=== PATIENT | female | born 1960 | race American Indian/Alaskan Native ===

== ENCOUNTER 2016-12-13 15:33 | Emergency (ER) | payer BC ==
[2016-12-13] MEDS ORDERED: NORVASC ONE (16:56)
[2016-12-13] MEDS ORDERED: NORVASC PO ONE (16:58)
[2016-12-13 17:29] LABS: Basophils % (Auto) 0.6 % (0.0-1.8); Eosinophils % (Auto) 1.1 % (0.0-4.3); Hematocrit 40.2 % (30.3-42.9); Hemoglobin 13.2 gm/dl (10.1-14.3); Mean Corpuscular HGB Conc 33 % (30-34); Mean Corpuscular Hemoglobin 28 pg (28-32); Mean Corpuscular Volume 86 fl (79-97); Platelet Count 261 K/mm3 (140-440); Red Blood Count 4.66 M/mm3 (3.65-5.03); Red Cell Distribution Width 13.1 % (13.2-15.2); White Blood Count 7.6 K/mm3 (4.5-11.0)
[2016-12-13 17:44] LABS: BUN/Creatinine Ratio 13.75; Blood Urea Nitrogen 11 mg/dL (7-17); Calcium 9.4 mg/dL (8.4-10.2); Carbon Dioxide 29 mmol/L (22-30); Chloride 100.9 mmol/L (98-107); Glucose 99 mg/dL (65-100); Sodium 140 mmol/L (137-145)
[2016-12-13 17:48] LABS: Anion Gap 14 mmol/L
[2016-12-13] MEDS ORDERED: CATAPRES PO ONE (20:17)
[2016-12-13 22:24] VITALS: BP 156/106
[2016-12-14] MEDS ORDERED: AUGMENTIN 875 MG PO ONE (02:42)
--- NOTE | 2016-12-14 02:58 | Emergency Department Report ---
ED Neck Pain/Injury HPI - General Chief Complaint: Neck Pain/Injury Stated Complaint: SWOLLEN NECK/FACE Time Seen by Provider: 12/14/16 02:29 Mode of arrival: Ambulatory Limitations: No Limitations - History of Present Illness Initial Comments: 56-year-old female with past medical history hypertension presents to the hospital complains of right neck gland swelling for several days. Patient was seen at [facility] early for same symptoms. States she was treated for uncontrolled hypertension and diagnosed with lymphadenopathy secondary to infection. No labs or meds were prescribed. Patient felt that her treatment and diagnosis were inadequate so came to the ER for reevaluation. Patient complains of postnasal drip and some mild swelling to right side of her face. She denies fever, cough, ear pain, or sore throat. - Related Data Home Medications Medication Instructions Recorded Confirmed Last Taken amLODIPine [Norvasc] 5 mg PO DAILY 05/10/16 05/10/16 05/10/16 Previous Rx's Medication Instructions Recorded Last Taken Type Meclizine [Antivert] 25 mg PO TID PRN #30 tablet 11/05/14 Unknown Rx Cyclobenzaprine [Flexeril] 10 mg PO TID PRN #20 tablet 05/10/16 Unknown Rx Amoxicillin/K Clav Tab [Augmentin 1 tab PO Q12HR #14 tab 12/14/16 Unknown Rx 875 mg] Allergies Allergy/AdvReac Type Severity Reaction Status Date / Time promethazine HCl Allergy Swelling Verified 12/13/16 16:44 [From Phenergan] ED Review of Systems ROS: Stated complaint: SWOLLEN NECK/FACE Other details as noted in HPI Comment: All other systems reviewed and negative Other: Constitutional: No fevers chills Eyes: No eye pain visual changes or discharge ENT: as per hpi, nasal congestion, sinus drainage Neck: Denies pain Respiratory: Denies cough wheezing shortness of breath Cardiovascular: Denies chest pain, palpitations, syncope GI: Denies abdominal pain, nausea, vomiting, diarrhea : Denies dysuria, urinary frequency, or urgency Musculoskeletal: Denies back pain, joint swelling Skin: Denies rash, lesions, erythema Neurologic: Denies headache, numbness, weakness Psychiatric: Denies suicidal ideation, hallucinations ED Past Medical Hx - Past Medical History Hx Hypertension: Yes Hx Headaches / Migraines: Yes Additional medical history: vertigo. lyme disease - Surgical History Hx Cholecystectomy: Yes Additional Surgical History: tubal ligation. colon biopsy. ablation of uterus - Social History Smoking Status: Never Smoker Substance Use Type: None - Medications Home Medications: Home Medications Medication Instructions Recorded Confirmed Last Taken Type Meclizine [Antivert] 25 mg PO TID PRN #30 tablet 11/05/14 Unknown Rx Cyclobenzaprine [Flexeril] 10 mg PO TID PRN #20 tablet 05/10/16 Unknown Rx amLODIPine [Norvasc] 5 mg PO DAILY 05/10/16 05/10/16 05/10/16 History Amoxicillin/K Clav Tab [Augmentin 1 tab PO Q12HR #14 tab 12/14/16 Unknown Rx 875 mg] ED Physical Exam - General Limitations: No Limitations - Other Other exam information: General: No limitations, patient is alert in no acute distress Head exam: Atraumatic, normocephalic Eyes exam: Normal appearance, pupils equal reactive to light, extraocular movements intact ENT: Moist mucous membrane, lymphadenopathy below the ear, nontender, tm normal b/l Neck exam: Normal inspection, full range of motion, no meningismus nontender Respiratory exam: Clear to auscultation bilateral, no wheezes, rales, crackles Cardiovascular: Normal rate and rhythm, normal heart sounds Abdomen: Soft, nondistended, and nontender, with normal bowel sounds, no rebound, or guarding Extremity: Full range of motion normal inspection no deformity Back: Normal Inspection, full range of motion, no tenderness Neurologic: Alert, oriented x3, cranial nerves intact, no motor or sensory deficit Psychiatric: normal affect, normal mood Skin: Warm, dry, intact ED Course Vital Signs 12/13/16 12/13/16 12/13/16 16:45 18:19 20:05 Temperature 98.4 F 97.9 F Pulse Rate 83 80 80 Respiratory 18 18 16 Rate Blood Pressure 198/122 202/126 Blood Pressure 222/138 [Left] O2 Sat by Pulse 98 99 Oximetry 12/13/16 22:23 Temperature Pulse Rate 82 Respiratory 16 Rate Blood Pressure Blood Pressure 156/106 [Left] O2 Sat by Pulse 100 Oximetry - Reevaluation(s) Reevaluation #1: 12/14/16 03:22 pt bp improved with meds prior to my eval. Pt stable ED Medical Decision Making - Lab Data Result diagrams: 12/13/16 17:11 12/13/16 17:11 Lab Results 12/13/16 12/13/16 Range/Units 17:11 17:11 WBC 7.6 (4.5-11.0) K/mm3 RBC 4.66 (3.65-5.03) M/mm3 Hgb 13.2 (10.1-14.3) gm/dl Hct 40.2 (30.3-42.9) % MCV 86 (79-97) fl MCH 28 (28-32) pg MCHC 33 (30-34) % RDW 13.1 L (13.2-15.2) % Plt Count 261 (140-440) K/mm3 Lymph % (Auto) 37.5 H (13.4-35.0) % [place] % (Auto) 7.4 H (0.0-7.3) % Eos % (Auto) 1.1 (0.0-4.3) % Baso % (Auto) 0.6 (0.0-1.8) % Lymph # 2.9 (1.2-5.4) K/mm3 [place] # 0.6 (0.0-0.8) K/mm3 Eos # 0.1 (0.0-0.4) K/mm3 Baso # 0.0 (0.0-0.1) K/mm3 Seg Neutrophils % 53.4 (40.0-70.0) % Seg Neutrophils # 4.1 (1.8-7.7) K/mm3 Sodium 140 (137-145) mmol/L Potassium 4.0 (3.6-5.0) mmol/L Chloride 100.9 (98-107) mmol/L Carbon Dioxide 29 (22-30) mmol/L Anion Gap 14 mmol/L BUN 11 (7-17) mg/dL Creatinine 0.8 (0.7-1.2) mg/dL Estimated GFR > 60 ml/min BUN/Creatinine Ratio 13.75 % Glucose 99 (65-100) mg/dL Calcium 9.4 (8.4-10.2) mg/dL - Medical Decision Making Patient has some lymphadenopathy which could be secondary to infection. She will be treated with Augmentin given her concern and follow-up will be recommended - Differential Diagnosis lymphadenopathy, parotic gland swelling, sinusitis, viral Critical Care Time: No Critical care attestation.: If time is entered above; I have spent that time in minutes in the direct care of this critically ill patient, excluding procedure time. ED Disposition Clinical Impression: Lymphadenopathy, Sinus drainage Disposition: DISCHARGED TO HOME OR SELFCARE Is pt being admited?: No Does the pt Need Aspirin: No Condition: Stable Instructions: Sinusitis (ED), Lymphadenopathy (ED) Additional Instructions: Take the medication as prescribed. Symptoms worsen you may return. Follow-up with your physician within 3-5 days for reevaluation. Continue to use Rosetta pot as needed for nasal congestion. Prescriptions: Amoxicillin/K Clav Tab [Augmentin 875 mg] 1 tab PO Q12HR #14 tab Referrals: PRIMARY CARE, [Primary Care Provider] - 3-5 Days Time of Disposition: 03:24
== END 2016-12-14 03:40 | disposition home or self-care (01) ==
LOC: ED 15:33
DX: R59.1 Generalized enlarged lymph nodes (principal); J34.89 Other specified disorders of nose and nasal sinuses; I10 Essential (primary) hypertension; G43.909 Migraine, unspecified, not intractable, without status migrainosus
CPT/HCPCS: 36415; 80048; 85025; 99283

== ENCOUNTER 2017-07-27 00:24 | Emergency (ER) | payer BC ==
[2017-07-27 00:50] VITALS: BP 138/92
[2017-07-27 01:27] LABS: Basophils % (Auto) 0.6 % (0.0-1.8); Eosinophils % (Auto) 0.9 % (0.0-4.3); Hematocrit 39.8 % (30.3-42.9); Mean Corpuscular HGB Conc 33 % (30-34); Mean Corpuscular Hemoglobin 28 pg (28-32); Mean Corpuscular Volume 85 fl (79-97); Platelet Count 264 K/mm3 (140-440); Red Blood Count 4.71 M/mm3 (3.65-5.03); Red Cell Distribution Width 12.6 % (13.2-15.2); White Blood Count 12.6 K/mm3 (4.5-11.0)
[2017-07-27 01:36] LABS: BUN/Creatinine Ratio 19.23; Calcium 9.4 mg/dL (8.4-10.2); Chloride 97.6 mmol/L (98-107); Potassium 3.8 mmol/L (3.6-5.0)
[2017-07-27] MEDS ORDERED: NACL 0.9% 1000 ML 1,000 ML IV ONE (03:27)
--- NOTE | 2017-07-27 03:31 | Emergency Department Report ---
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 Similar symptoms in the past related to hypokalemia. Patient is currently taking potassium pills. History of hypokalemia associated hydrochlorothiazide use the patient has discontinued hydrochlorothiazide 1 year ago. She has not been worked up by renal to determine if she has any kidney issues causing hypokalemia. Patient states she has had good by mouth intake. She complained of sob described as feeling like "she cannot get in enough air". She denies pleuritic chest pain or any chest pain. She also denies edema or calf tenderness. Patient has a chronic cough and states that the cause is unknown if she has undergone pulmonology evaluation in the past. This shortness of breath feeling persists. No dyspnea noted on exam and breath sounds are clear to auscultation. Cardiac enzymes, d-dimer pending. Magnesium pending. Respiratory informed to this peak flow level. IV fluids ordered for mild dehydration and mild increase in creatinine compared to previous. Patient's d-dimer was negative. Patient had improvement in peak flow after DuoNeb and improvement in breathing symptoms. Positive UTI was identified antibiotics initiated. see mid-level chart
[2017-07-27 03:34] LABS: Creatine Kinase 225 units/L (30-135); Creatine Kinase MB 1.7 ng/mL (0.0-4.0)
--- NOTE | 2017-07-27 03:35 | Emergency Department Report ---
<ARVIN WHITNEY - Last Filed: 07/27/17 04:46> ED General Adult HPI - General Chief complaint: Pain General Stated complaint: SOB WITH CRAMPING IN BODY Time Seen by Provider: 07/27/17 03:00 Source: patient Mode of arrival: Ambulatory Limitations: No Limitations - History of Present Illness Initial comments: This is a 56-year-old female nontoxic, well nourished in appearance, no acute signs of distress presents to the ED complaining of body cramping and feeling of shortness of breath. 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 Patient denies any chest pain, numbness, tingling, fever, chills, nausea, vomiting, headache, hemoptysis, calf pain, calf tenderness. Patient denies any recent travels, long car rides or recent hospital stays. Patient states allergies to Phenergan. PMH includes headaches, HTN, vertigo, and lyme disease. MD Complaint: hand cramping and shortness of breathe -: Gradual, days(s) (1) Location: upper extremity Radiation: non-radiation Severity scale (0 -10): 4 Quality: other (cramping) Improves with: none Worsens with: none Associated Symptoms: denies other symptoms. denies: confusion, chest pain, cough, diaphoresis, fever/chills, headaches, loss of appetite, malaise, nausea/ vomiting, rash, seizure, shortness of breath, syncope, weakness Treatments Prior to Arrival: none - Related Data Home Medications Medication Instructions Recorded Confirmed Last Taken amLODIPine [Norvasc] 5 mg PO DAILY 05/10/16 05/10/16 05/10/16 Previous Rx's Medication Instructions Recorded Last Taken Type Meclizine [Antivert] 25 mg PO TID PRN #30 tablet 11/05/14 Unknown Rx Cyclobenzaprine [Flexeril] 10 mg PO TID PRN #20 tablet 05/10/16 Unknown Rx Amoxicillin/K Clav Tab [Augmentin 1 tab PO Q12HR #14 tab 12/14/16 Unknown Rx 875 mg] ALBUTEROL Inhaler [ProAir HFA 2 puff IH QID PRN #1 inhalation 07/27/17 Unknown Rx Inhaler] Inhaler, Assist Devices [Space 1 each MC DAILY #1 spacer 07/27/17 Unknown Rx Chamber Plus] Sulfamethoxazole/Trimethoprim 1 each PO BID #14 tablet 07/27/17 Unknown Rx [Bactrim DS TAB] Allergies Allergy/AdvReac Type Severity Reaction Status Date / Time promethazine HCl Allergy Swelling Verified 12/13/16 16:44 [From Phenergan] ED Review of Systems ROS: Stated complaint: SOB WITH CRAMPING IN BODY Other details as noted in HPI Constitutional: denies: chills, fever Eyes: denies: eye pain, eye discharge, vision change ENT: denies: ear pain, throat pain Respiratory: denies: cough, shortness of breath, wheezing Cardiovascular: denies: chest pain, palpitations Endocrine: no symptoms reported Gastrointestinal: denies: abdominal pain, nausea, diarrhea Genitourinary: denies: urgency, dysuria, discharge Musculoskeletal: denies: back pain, joint swelling, arthralgia Skin: denies: rash, lesions Neurological: denies: headache, weakness, paresthesias Psychiatric: denies: anxiety, depression Hematological/Lymphatic: denies: easy bleeding, easy bruising ED Past Medical Hx - Past Medical History Previous Medical History?: Yes Hx Hypertension: Yes Hx Headaches / Migraines: Yes Additional medical history: vertigo. lyme disease - Surgical History Past Surgical History?: Yes Hx Cholecystectomy: Yes Additional Surgical History: tubal ligation. colon biopsy. ablation of uterus - Social History Smoking Status: Never Smoker Substance Use Type: None - Medications Home Medications: Home Medications Medication Instructions Recorded Confirmed Last Taken Type Meclizine [Antivert] 25 mg PO TID PRN #30 tablet 11/05/14 Unknown Rx Cyclobenzaprine [Flexeril] 10 mg PO TID PRN #20 tablet 05/10/16 Unknown Rx amLODIPine [Norvasc] 5 mg PO DAILY 05/10/16 05/10/16 05/10/16 History Amoxicillin/K Clav Tab [Augmentin 1 tab PO Q12HR #14 tab 12/14/16 Unknown Rx 875 mg] ALBUTEROL Inhaler [ProAir HFA 2 puff IH QID PRN #1 inhalation 07/27/17 Unknown Rx Inhaler] Inhaler, Assist Devices [Space 1 each MC DAILY #1 spacer 07/27/17 Unknown Rx Chamber Plus] Sulfamethoxazole/Trimethoprim 1 each PO BID #14 tablet 07/27/17 Unknown Rx [Bactrim DS TAB] ED Physical Exam - General Limitations: No Limitations General appearance: alert, in no apparent distress - Head Head exam: Present: atraumatic, normocephalic, normal inspection - Eye Eye exam: Present: normal appearance, PERRL, EOMI. Absent: scleral icterus, conjunctival injection, nystagmus, periorbital swelling, periorbital tenderness Pupils: Present: normal accommodation - ENT ENT exam: Present: normal exam, normal orophraynx, mucous membranes moist, TM's normal bilaterally, normal external ear exam - Neck Neck exam: Present: normal inspection, full ROM. Absent: tenderness, meningismus, lymphadenopathy, thyromegaly - Respiratory Respiratory exam: Present: normal lung sounds bilaterally. Absent: respiratory distress, wheezes, rales, rhonchi, stridor, chest wall tenderness, accessory muscle use, decreased breath sounds, prolonged expiratory - Cardiovascular Cardiovascular Exam: Present: regular rate, normal rhythm, normal heart sounds. Absent: bradycardia, tachycardia, irregular rhythm, systolic murmur, diastolic murmur, rubs, gallop - GI/Abdominal GI/Abdominal exam: Present: soft, normal bowel sounds. Absent: distended, tenderness, guarding, rebound, rigid, diminished bowel sounds - Rectal Rectal exam: Present: deferred - Extremities Exam Extremities exam: Present: normal inspection, full ROM, normal capillary refill. Absent: tenderness, pedal edema, joint swelling, calf tenderness - Back Exam Back exam: Present: normal inspection, full ROM. Absent: tenderness, CVA tenderness (R), CVA tenderness (L), muscle spasm, paraspinal tenderness, vertebral tenderness, rash noted - Neurological Exam Neurological exam: Present: alert, oriented X3, CN II-XII intact, normal gait, reflexes normal - Psychiatric Psychiatric exam: Present: normal affect, normal mood - Skin Skin exam: Present: warm, dry, intact, normal color. Absent: rash ED Course Vital Signs 07/27/17 07/27/17 07/27/17 00:43 03:56 04:06 Temperature 98.2 F Pulse Rate 108 H Pulse Rate [ 86 88 Posterior Left Throughout] Respiratory 18 Rate Respiratory 14 14 Rate [Posterior Left Throughout] Blood Pressure 138/92 O2 Sat by Pulse 96 Oximetry - Reevaluation(s) Reevaluation #1: 07/27/17 03:34 Patient is speaking in full sentences with no signs of distress noted. Reevaluation #2: 07/27/17 04:26 Pre-flow peak-290 Post-flow peak-420 Patient stated feels much better with no shortness of breathe being subsided. - Consultations Consultation #1: 07/27/17 03:34 Dr. Dubose has been consulted about patient history, physcial exam, and labs/ekg and examined patient. Agrees to the plan of care in the ED. 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 Patient was examined myself and Dr. Dubose. CBC, BMP, cardiac CK, all negative findings with no abnormalities. There is a negative troponin and d-dimer. Magnesium within normal limits. EKG has been obtained with normal sinus rhythm, left axis deviation, pulmonary disease pattern, incomplete right bundle branch block, nonspecific T-wave and malady, and compared to 2016 with similar findings. Chest x-ray has been obtained with negative findings of any abnormalities. Dictated by radiologist. Patient received DuoNeb 1 and stated she feels much better and states shortness of breath has subsided. Pre-DuoNeb treatment peak flow of 290 and post DuoNeb treatment peak flow of 420. Lungs are clear on auscultation. Patient is not in acute distress. Patient is talking in full sentences. Patient will be discharged with albuterol with spacer. 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 Ua indicates elevated WBC, blood, and leukocytes. Patient be treated with Bactrim at discharge for UTI. Critical care attestation.: If time is entered above; I have spent that time in minutes in the direct care of this critically ill patient, excluding procedure time. ED Disposition Disposition: DC-01 TO HOME OR SELFCARE Is pt being admited?: No Does the pt Need Aspirin: No Condition: Stable Instructions: Albuterol (By breathing), Urinary Tract Infection in Women (ED), Reactive Airways Disease (ED), Muscle Spasm (ED), How to Use a Metered-Dose Inhaler with a Spacer (ED) Additional Instructions: Follow-up with a coil winding supervisor/primary care doctor/wrestling coach 3-5 days or if symptoms worsen or continue presents to emergency room as soon as possible. Prescriptions: ALBUTEROL Inhaler [ProAir HFA Inhaler] 2 puff IH QID PRN #1 inhalation PRN Reason: Shortness Of Breath Inhaler, Assist Devices [Space Chamber Plus] 1 each MC DAILY #1 spacer Sulfamethoxazole/Trimethoprim [Bactrim DS TAB] 1 each PO BID #14 tablet Referrals: PRIMARY CAREMD [Primary Care Provider] - 3-5 Days ANTHONY PIEDRA MD [Staff Physician] - 3-5 Days KRISTIN WELLS MD [Staff Physician] - 3-5 Days [facility] [Outside] - 3-[address] [facility] [Outside] - 3-5 Days KACIE CRUZ MD [Staff Physician] - 3-5 Days Forms: Work/School Release Form(ED) <ARNAUD DUBOSE - Last Filed: 07/28/17 06:13> ED Medical Decision Making - Lab Data Result diagrams: 07/27/17 00:52 07/27/17 00:52 - Medical Decision Making I was asked to evaluate the patient by midlevel 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 Similar symptoms in the past related to hypokalemia. Patient is currently taking potassium pills. History of hypokalemia associated hydrochlorothiazide use the patient has discontinued hydrochlorothiazide 1 year ago. She has not been worked up by renal to determine if she has any kidney issues causing hypokalemia. Patient states she has had good by mouth intake. She complained of sob described as feeling like "she cannot get in enough air". She denies pleuritic chest pain or any chest pain. She also denies edema or calf tenderness. Patient has a chronic cough and states that the cause is unknown if she has undergone pulmonology evaluation in the past. This shortness of breath feeling persists. No dyspnea noted on exam and breath sounds are clear to auscultation. Cardiac enzymes, d-dimer pending. Magnesium pending. Respiratory informed to this peak flow level. IV fluids ordered for mild dehydration and mild increase in creatinine compared to previous. Patient's d-dimer was negative. Patient had improvement in peak flow after DuoNeb and improvement in breathing symptoms. Positive UTI was identified antibiotics initiated. see mid-level chart
--- NOTE | 2017-07-27 03:50 | XRay Report ---
FINAL REPORT EXAM: XR CHEST ROUTINE 2V HISTORY: sob COMPARISON: None available. FINDINGS:: Frontal and lateral views of the chest obtained. Cardiac silhouette is within normal limits. No focal consolidation or effusion. No pneumothorax. Visualized bony thorax is grossly intact. IMPRESSION:: No acute findings.
[2017-07-27] MEDS ORDERED: DUONEB *Not for PRN Use IH ONE (03:52)
[2017-07-27 04:39] LABS: Bilirubin,Urine NEG (Negative); Blood,Urine SM (Negative); Ketones,Urine NEG (Negative); Leukocyte Esterase,Urine LG (Negative); Mucus,Urine FEW /HPF; Nitrite,Urine NEG (Negative); Protein,Urine <15 mg/dL mg/dL (Negative); Urobilinogen,Urine < 2.0 mg/dL (<2.0)
== END 2017-07-27 05:02 | disposition home or self-care (01) ==
LOC: ED 00:24
DX: R06.02 Shortness of breath (principal); M79.642 Pain in left hand; M79.641 Pain in right hand; I10 Essential (primary) hypertension; G43.909 Migraine, unspecified, not intractable, without status migrainosus; Z88.8 Allergy status to other drugs, medicaments and biological substances
CPT/HCPCS: 36415; 71020; 80048; 81001; 82550; 82553; 83735; 84484; 85025; 85379; 93005; 93010; 94640; 96360; 99284; J7030